=== PATIENT | male | born 1970 | race Two or more races ===

== ENCOUNTER 2023-05-08 12:51 | Emergency (ER) | payer OTHER ==
[~2023-05-08] VITALS: Ht 185.4 cm; Wt 82.0 kg
[2023-05-08 12:54] VITALS: BP 122/74; PULSE 80; RESP 16; TEMP 98.1; O2SAT 98
== END 2023-05-08 16:34 | disposition left against medical advice (07) ==
LOC: ER 12:51
DX: M79.10 Myalgia, unspecified site (principal); Z53.21 Procedure and treatment not carried out due to patient leaving prior to being seen by health care provider
CPT/HCPCS: 99281